=== PATIENT | female | born 1975 | race Caucasian/White ===

== ENCOUNTER 2024-06-26 18:05 | Emergency (ER) | payer BC, SELFPAY ==
[2024-06-26 18:18] VITALS: BP 161/100
--- NOTE | 2024-06-26 18:31 | ED.GENMED ---
ED Provider Triage
<Lucina nAdujar MICA PLATE LAYER - Last Filed: 06/26/24 18:33>
-
Patient seen by provider in Triage?: Seen in Triage
Attestation: A medical screening examination has been initiated by a qualified medical provider. Based on the assessment performed at this time, it has been determined that an emergent medical condition may exist and the patient has been informed
that further medical evaluation and possible additional diagnostic testing may be needed.
HPI: 49-year-old female with history of RA, HTN, benign PVCs, fibromyalgia presents for epigastric 8/10 device doubled over, gripping pain sudden onset, 4:30 PM, lasted an hour then it went down to 5/10, more of a deep gnawing pain. Does have
occasional reflux and she takes a Pepcid as needed.. Feels nauseous, no vomiting, denies diarrhea or constipation.
GENERAL: Alert , in no apparent distress
EYE: No visual abnormalities.
NECK: Trachea midline
ENT: No visible abnormalities.
LUNGS: No acute respiratory distress
NEUROLOGICAL: Alert and oriented
SKIN: Skin intact. No visible changes.
MUSCULOSKELETAL: Moving extremities normally
PSYCH: Normal and appropriate interaction.
This is a medical evaluation conducted in person to initiate diagnostic evaluation and provide initial therapeutics. Please see further documentation by the treating clinician.
History of Present Illness
<Lucina Andujar MICA PLATE LAYER - Last Filed: 06/26/24 18:33>
General
Chief Complaint: Abdominal Pain
Time Seen by Provider: 06/26/24 21:21
<Naomy Bee PA-C - Last Filed: 06/27/24 00:42>
General
Source: patient
Exam Limitations: none
Nursing documentation reviewed up to this point in time: agreed with
History of Present Illness
History of Present Illness:
Patient is a 49-year-old female with history hypertension presenting to the emergency department for evaluation of upper abdominal pain. Patient states she was sitting at her desk around 4 PM when she had acute onset tearing pain in her upper
abdomen with some radiation to her right upper quadrant. She did take some Tums and states pain has somewhat subsided although is with mildly dull at present. Patient denies any radiation of pain to her chest or back. Patient states she just felt
generally unwell this morning including mild lightheadedness. Patient denies any chest pain, shortness of breath, pain in lower extremities. No vomiting or fevers. No back pain.
Patient has felt nauseous and had general abdominal discomfort over the past 2 weeks after cross-contamination with fish at a restaurant. She did have a similar episode a few years ago and was diagnosed with gastritis and told she did have
gallbladder polyps.
Review of Systems
<Naomy Bee PA-C - Last Filed: 06/27/24 00:42>
Review of Systems
Allergies reviewed?: Yes
All Other Systems: ROS reviewed and negative except as documented in HPI and ROS
Phy Exam
<Naomy Bee PA-C - Last Filed: 06/27/24 00:42>
Physical Exam
Physical Exam:
Vitals: My assessment�patient's vital signs are stable. Afebrile
General: Patient is well appearing, no acute distress. Nontoxic appearing
Skin: Warm and dry, no rashes or lesions
Head: Normocephalic, atraumatic
Eyes: Sclera nonicteric. EOMs intact. No nystagmus.
Throat: Protecting airway
Neck: Normal ROM, no cervical spine tenderness, no meningismus
Cardiac: Regular rate and rhythm, no murmurs.
Pulm: Normal respiratory effort, no wheezes, rales, rhonchi heard on exam.
Abdomen: Abdomen soft. Mild epigastric and right upper quadrant tenderness without rebound tenderness or guarding. Negative Reyes sign. No CVA tenderness
Extremities: No evidence of cyanosis or edema. Palpable DP pulses bilaterally
Neuro: AAOx3. Grossly intact
Psychiatric: Normal affect.
Course
<Lucina Dunne Day, MICA PLATE LAYER - Last Filed: 06/26/24 18:33>
Orders/Labs/Results
Orders:
Orders
06/26/24 18:22
ECG [Electrocardiogram (*1)] Urgent
Reason for Study: Abdominal Pain
06/26/24 18:23
EKG- Treatment ONCE
06/26/24 18:35
Complete Blood Count/With Diff Urgent
Comprehensive Metabolic Panel Urgent
Lipase Urgent
Troponin I Urgent
06/26/24 21:30
US Abdomen Complete/Upper Urgent
Comment:
Reason For Exam: RUQ/ epigastric pain
06/26/24 21:33
Acetaminophen [Tylenol] 650 mg PO NOW STA
Famotidine [Pepcid] 40 mg PO NOW STA
06/26/24 21:38
Electrocardiogram (*1) Urgent
Reason for Study: Abdominal Pain
EKG- Treatment ONCE
06/26/24 22:22
Troponin I Urgent
Abnormal Lab Results
06/26/24
18:35
MCH 31.4 H pg
(27.0-31.0)
MPV 10.7 H fL
(7.4-10.4)
Glucose 103 H mg/dl
(70-99)
AST 52 H U/L
(14-36)
ALT 51 H U/L
(0-35)
06/26/24 18:35
06/26/24 18:35
Vital Signs
Initial and Last Documented VS:
Initial Vital Signs
Temp Pulse Resp BP Pulse Ox
98.3 F 66 20 161/100 99
06/26/24 18:18 06/26/24 18:18 06/26/24 18:18 06/26/24 18:18 06/26/24 18:18
Last Documented Vital Signs
Temp Pulse Resp BP Pulse Ox
98.3 F 55 14 110/64 98
06/26/24 18:18 06/27/24 00:00 06/27/24 00:00 06/27/24 00:00 06/27/24 00:00
<Naomy Bee PA-C - Last Filed: 06/27/24 00:42>
Orders/Labs/Results
Orders:
Orders
06/26/24 18:22
ECG [Electrocardiogram (*1)] Urgent
Reason for Study: Abdominal Pain
06/26/24 18:23
EKG- Treatment ONCE
06/26/24 18:35
Complete Blood Count/With Diff Urgent
Comprehensive Metabolic Panel Urgent
Lipase Urgent
Troponin I Urgent
06/26/24 21:30
US Abdomen Complete/Upper Urgent
Comment:
Reason For Exam: RUQ/ epigastric pain
06/26/24 21:33
Acetaminophen [Tylenol] 650 mg PO NOW STA
Famotidine [Pepcid] 40 mg PO NOW STA
06/26/24 21:38
Electrocardiogram (*1) Urgent
Reason for Study: Abdominal Pain
EKG- Treatment ONCE
06/26/24 22:22
Troponin I Urgent
Abnormal Lab Results
06/26/24
18:35
MCH 31.4 H pg
(27.0-31.0)
MPV 10.7 H fL
(7.4-10.4)
Glucose 103 H mg/dl
(70-99)
AST 52 H U/L
(14-36)
ALT 51 H U/L
(0-35)
06/26/24 18:35
06/26/24 18:35
Vital Signs
Initial and Last Documented VS:
Initial Vital Signs
Temp Pulse Resp BP Pulse Ox
98.3 F 66 20 161/100 99
06/26/24 18:18 06/26/24 18:18 06/26/24 18:18 06/26/24 18:18 06/26/24 18:18
Last Documented Vital Signs
Temp Pulse Resp BP Pulse Ox
98.3 F 55 14 110/64 98
06/26/24 18:18 06/27/24 00:00 06/27/24 00:00 06/27/24 00:00 06/27/24 00:00
<Kevin Munson DO - Last Filed: 06/27/24 00:42>
Orders/Labs/Results
Orders:
Orders
06/26/24 18:22
ECG [Electrocardiogram (*1)] Urgent
Reason for Study: Abdominal Pain
06/26/24 18:23
EKG- Treatment ONCE
06/26/24 18:35
Complete Blood Count/With Diff Urgent
Comprehensive Metabolic Panel Urgent
Lipase Urgent
Troponin I Urgent
06/26/24 21:30
US Abdomen Complete/Upper Urgent
Comment:
Reason For Exam: RUQ/ epigastric pain
06/26/24 21:33
Acetaminophen [Tylenol] 650 mg PO NOW STA
Famotidine [Pepcid] 40 mg PO NOW STA
06/26/24 21:38
Electrocardiogram (*1) Urgent
Reason for Study: Abdominal Pain
EKG- Treatment ONCE
06/26/24 22:22
Troponin I Urgent
Abnormal Lab Results
06/26/24
18:35
MCH 31.4 H pg
(27.0-31.0)
MPV 10.7 H fL
(7.4-10.4)
Glucose 103 H mg/dl
(70-99)
AST 52 H U/L
(14-36)
ALT 51 H U/L
(0-35)
06/26/24 18:35
06/26/24 18:35
Vital Signs
Initial and Last Documented VS:
Initial Vital Signs
Temp Pulse Resp BP Pulse Ox
98.3 F 66 20 161/100 99
06/26/24 18:18 06/26/24 18:18 06/26/24 18:18 06/26/24 18:18 06/26/24 18:18
Last Documented Vital Signs
Temp Pulse Resp BP Pulse Ox
98.3 F 55 14 110/64 98
06/26/24 18:18 06/27/24 00:00 06/27/24 00:00 06/27/24 00:00 06/27/24 00:00
<Naomy Bee PA-C - Last Filed: 06/27/24 00:42>
MDM/Problems Addressed
Differential Diagnosis Includes:
Not limited to: Biliary colic, cholecystitis, choledocholithiasis, GERD, gastritis, ACS, etc.
MDM/Problems Addressed:
49-year-old female presenting with acute onset epigastric pain earlier this afternoon with some resolution prior to arrival to emergency department. Does have history of similar symptoms during episode of suspected gastritis following ingestion of
fish�which patient is allergic to. Patient denies any chest pain, shortness of breath, lightheadedness, back pain. No numbness or tingling. Patient initially hypertensive on arrival although normalized by my assessment. She is afebrile. On
exam�patient is well-appearing, no apparent distress. Heart regular rate and rhythm. Lungs clear bilaterally. Abdomen is soft with mild tenderness in epigastric/right upper quadrant without rebound tenderness. No ecchymoses or rash. Patient is
perfusing well with palpable distal pulses. Differential broad other considerations include possible biliary colic, cholecystitis, GERD, gastritis. Cardiac etiology also in differential at this time although must lower suspicion after exam. Basic
labs were initiated in triage without any clinically significant abnormalities. Mild elevation in AST and ALT. Initial troponin undetectable. Lipase normal. EKG without acute ischemic changes. Will check abdominal ultrasound and repeat
troponin. Will give dose of Pepcid.
Update: Repeat troponin undetectable. Abdominal ultrasound without any evidence of gallstones or biliary duct dilatation. Small gallstones noted which patient was aware of. Ultimately�suspect likely gastritis/GERD. Will start patient on short
course of PPI. Advised repeat LFTs with primary care in few weeks for monitoring, trending down. Return precautions discussed with patient.
Chronic conditions affecting care:
Hypertension
Acute Exacerbation and/or Progression of Chronic Illness:
Acutely hypertensive
<Naomy Bee PA-C - Last Filed: 06/27/24 00:42>
*Radiology
Radiology exam reviewed: radiology read reviewed
*Pulse Oximetry
Patient hypoxic: no
*EKG
Interpreted by ED Provider?: Yes
EKG Intrepretation Date: 06/26/24
Interpretation: normal
Comparison EKG: no comparison EKG present
Heart Rate: 59
Rate: bradycardiac
Rhythm: sinus
Kohler: normal axis
Interval: normal interval
QRS Pattern: normal QRS
Ischemia: no ischemia
*Critical Care Note
Total Time (30-74mins, 75-104mins- exclusive of procedures): Not Applicable
ED Attending Note
<Lucina Andujar MICA PLATE LAYER - Last Filed: 06/26/24 18:33>
-
Portions of this chart may have been created with voice recognition software.� Occasional wrong word or��sound alike� substitutions may have occurred due to the inherent limitations of voice recognition software.
<Kevin Munson DO - Last Filed: 06/27/24 00:42>
ED Attending Note
Patient seen and examined by attending physician: Yes
I performed the substantive portion of visit, reviewed & personally made and approve the management plan that is documented in note by myself or ARAVIND.: Yes
ED Attending Note:
Patient is a 49-year-old female with a history of rheumatoid arthritis on methotrexate who presents with upper abdominal discomfort similar to the discomfort she gets when she is exposed to seafood. She does not need to actually eat this seafood
but if it is in any way contaminating her food she develops the symptoms of gastritis. Patient has had nausea and vomiting before. Patient only had nausea this time. Patient did have 1 episode of explosive diarrhea but nothing since. Patient
denies melena or hematochezia. Patient denies chest pain, shortness of breath or palpitations. Patient denies any fever or chills. Patient denies any symptoms. On physical exam patient does not appear in any distress with supple neck without
adenopathy. Patient is normocephalic. Heart is regular without murmur or gallop. Lungs are clear. Abdomen is mildly tender in the midepigastric region without guarding or rebound. Patient does have good bowel sounds. Patient has no edema or
cyanosis of the extremities. Patient has known gallbladder polyps. Appears patient probably has gastritis again. Patient will be placed on appropriate medications and then discharged.
Discharge Plan
Departure
Patient Disposition: Home (Routine Discharge)
Date of Disposition: 06/26/24
Time of Disposition: 23:48
Patient with high blood pressure during this ER visit?: Yes
Condition: Good
Covid-19: Not Applicable
Discharge Problem:
Abdominal pain, Gastritis
Instructions: Acid Reflux and GERD in Adults (DC), Gastritis (DC), BLOOD PRESSURE
Prescriptions:
New
pantoprazole 40 mg tablet,delayed release (DR/EC)
40 mg PO DAILY 14 Days Qty: 14 0RF
Referrals:
Kevin Butler DO [Family Provider] - Follow up in 10 days
Activity Restrictions/Additional Instructions:
RETURN TO THE EMERGENCY DEPARTMENT WITH ANY CHEST PAIN, SHORTNESS OF BREATH, INTRACTABLE ABDOMINAL PAIN, SEVERE BACK PAIN, WORSENING IN CURRENT SYMPTOMS, OR ANY OTHER CONCERNS
-Prescription for pantoprazole has been sent to your pharmacy. You can take this once a day for the next 2 weeks.
-As discussed that she did have very mild elevation in your liver function test while in the emergency department. You should have these rechecked within the next few weeks to a month with your primary care provider to ensure they are trending down.
-Your ultrasound showed to small gallbladder polyps measuring approximately 3 mm.
-Avoid high acid foods. Stay well-hydrated.
-Follow-up closely with your primary care for further evaluation/management.
Monitor symptoms closely and return to the emergency department with any acute worsening/new symptoms or any other concerns
Interventions
Interventions:
*Risk Screen - Suicide Last Done: 06/27/24 00:15
*General Assessment Last Done: 06/26/24 18:18
*Neglect/Abuse Screening Last Done: 06/27/24 00:15
ED- Fall Risk Assessment Last Done: 06/26/24 21:26
*ED COVID-19 Vaccine History Last Done: 06/27/24 00:15
*Nursing Disposition Last Done: 06/27/24 00:15
GV-[id number]-Hcvebayytg Assessment Last Done: 06/26/24 21:26
Discharge Date and Time
Discharge Date/Time: 06/27/24 00:16
Print Language: ARMENIAN
[2024-06-26 18:45] LABS: % Basophils 0.7 % (0-2); % Eosinophils 1.1 % (0-6); % Immature Granulocytes 0.2 % (0-0.5); % Lymphocytes 33.8 % (20.5-51.1); % Monocytes 7.8 % (1.7-9.3); % Neutrophils 56.4 % (42.2-75.2); Absolute Eosinophils 0.1 10^3/uL (0-0.7); Absolute Lymphocytes 1.9 10^3/uL (1.2-3.4); Absolute Monocytes 0.4 10^3/uL (0.1-0.6); Absolute Neutrophils 3.1 10^3/uL (1.4-6.5); Hematocrit 37.8 % (37.0-47.0); Hemoglobin 13.2 g/dL (12.0-16.0); Mean Corp Hgb Conc. 34.9 g/dL (33.0-37.0); Mean Corpuscular Hgb 31.4 pg (27.0-31.0); Mean Platelet Volume 10.7 fL (7.4-10.4); Nucleated Red Blood Cells % 0 %; Platelet Count 203 10^3/uL (130-400); Red Cell Dist. Width 12.2 % (11.5-14.5); White Blood Cell Count 5.5 10^3/uL (4.8-10.8)
[2024-06-26 18:59] LABS: ALT (SGPT) 51 U/L (0-35); AST (SGOT) 52 U/L (14-36); Albumin 4.7 g/dl (3.5-5.0); Alkaline Phosphatase 78 U/L (38-126); Blood Urea Nitrogen 17 mg/dl (7-17); Calcium 9.6 mg/dl (8.4-10.2); Carbon Dioxide 26 mmol/L (22-30); Chloride 106 mmol/L (98-107); Glucose 103 mg/dl (70-99); Lipase 88 U/L (23-300); Potassium 3.9 mmol/L (3.5-5.1); Sodium 141 mmol/L (135-145); Total Bilirubin 0.5 mg/dl (0.2-1.3); Total Protein 7.2 g/dl (6.3-8.2); eGFR > 60.00
[2024-06-26 19:10] LABS: Troponin I < 0.012 ng/ml
[2024-06-26 20:39] VITALS: BP 140/81
[2024-06-26 21:25] VITALS: BP 138/67; BMI 28.4
[2024-06-26 22:00] VITALS: BP 127/74
[2024-06-26] MEDS: TYLENOL 650 MG PO (22:13)
[2024-06-26] MEDS: PEPCID 40 MG PO (22:15)
[2024-06-26 22:55] VITALS: BP 125/78
[2024-06-26 23:00] VITALS: BP 111/62
[2024-06-26 23:01] LABS: Troponin I < 0.012 ng/ml
[2024-06-27] VITALS: BP 110/64
== END 2024-06-27 00:16 | disposition home or self-care (01) ==
LOC: EMR 18:05
PROVIDERS: Physician Assistant; Registered Nurse; EMERGENCY PHYSICIAN Emergency Medicine; FAMILY PHYSICIAN Family Medicine
DX: R10.13 Epigastric pain (principal); K29.70 Gastritis, unspecified, without bleeding; I10 Essential (primary) hypertension
CPT/HCPCS: 99285; 76700; 80053; 83690; 84484; 85025; 93005